=== PATIENT | male | born 1955 | race Caucasian/White ===

== ENCOUNTER 2019-01-11 06:58 | Day surgery (SDC) | payer BC ==
[~2019-01-11] VITALS: Ht 188 cm; Wt 100.7 kg
[~2019-01-11 06:58] MED LIST: AMLO10 PO; ASPI325 PO; CHOL10002; Daily Multivit1 EAC2 PO; FISH1000; GABA300 PO; GEMF600 PO; HYDCHL25 PO; Ibuprofen Ib200 MG PO; K-TAB ER20 MEQ PO; LOSA25; LOSARTAN POTAS100 MG PO; PROBIOTIC1 EAC1; Vitamin C1000 M1; ZOLP12.5 PO
[2019-01-11] MEDS ORDERED: Azor 5-20 MG T1 EACH (07:44)
== END 2019-01-11 08:49 | disposition home or self-care (01) ==
LOC: ORSCSDS 06:58
PROVIDERS: Surgery
PROC: 0DBL8ZX Excision of Transverse Colon, Via Natural or Artificial Opening Endoscopic, Diagnostic (ICD-10-PCS; principal; 2019-01-11 08:15)
PROC: 0DBK8ZX Excision of Ascending Colon, Via Natural or Artificial Opening Endoscopic, Diagnostic (ICD-10-PCS; principal; 2019-01-11 08:15)
DX: Z12.11 Encounter for screening for malignant neoplasm of colon (principal); Z85.038 Personal history of other malignant neoplasm of large intestine; D12.2 Benign neoplasm of ascending colon; D12.3 Benign neoplasm of transverse colon; K57.30 Diverticulosis of large intestine without perforation or abscess without bleeding; I10 Essential (primary) hypertension; Z79.899 Other long term (current) drug therapy; Z79.82 Long term (current) use of aspirin
CPT/HCPCS: 88305; J2704; J7120

== ENCOUNTER 2020-09-22 07:16 | Inpatient (IN) | payer OTHER, MEDICARE ==
[~2020-09-22] VITALS: Ht 188 cm; Wt 99.8 kg
[~2020-09-22 07:16] MED LIST changes: +Azor 5-20 MG T1 EACH
[2020-09-22 08:02] LABS: BASOPHILS PERCENT AUTO 0 % (0-2); EOSINOPHILS ABSOLUTE AUTO 0.18 K/mm3 (0.00-0.68); EOSINOPHILS PERCENT AUTO 1 % (0-6); Hematocrit 44.3 % (37.0-53.0); Hemoglobin 15.5 g/dL (13.5-17.5); IMMATURE GRAN ABSOLUTE AUTO 0.16 K/mm3 (0.00-0.10); IMMATURE GRAN PERCENT AUTO 1 % (0-1); LYMPHOCYTES ABSOLUTE AUTO 1.39 K/mm3 (0.84-5.20); LYMPHOCYTES PERCENT AUTO 5 % (21-46); MONOCYTES PERCENT AUTO 6 % (4-13); Mean Corpuscular Volume 89 fL (80-100); Mean Platelet Volume 9.4 fL (9.1-12.4); NEUTROPHILS ABSOLUTE AUTO 22.39 K/mm3 (1.96-9.15); NEUTROPHILS PERCENT AUTO 87 % (41-73); Platelet Count 523 K/mm3 (150-400); RDW Coefficient Variation 12.4 % (11.7-14.2); RDW Standard Deviation 40.4 fL (35.1-46.3); White Blood Cell Count 25.82 K/mm3 (4.00-11.30)
[2020-09-22 08:26] LABS: Alanine Aminotransfer (ALT/SGP 20 U/L (12-78); Albumin/Globulin Ratio 0.8 (0.8-1.8); Alk Phos 132 U/L (50-136); Anion Gap 11 mmol/L (6-16); Aspartate Aminotrans (AST/SGOT 10 U/L (12-37); Bilirubin, Total 1.1 mg/dL (0.1-1.0); Blood Urea Nitrogen 28 mg/dL (8-24); Bun/Creatinine Ratio 26.2 (12.0-20.0); CO2, Blood 24 mmol/L (21-32); Calcium, Blood 10.2 mg/dL (8.5-10.1); Chloride, Blood 100 mmol/L (98-108); Creatinine, Blood 1.07 mg/dL (0.60-1.20); Globulin, Blood 4.9 g/dL (2.2-4.0); Glomerular Filtration Rate >60 (60-); Glucose, Blood 127 mg/dL (70-99); Potassium, Blood 2.9 mmol/L (3.5-5.5); Sodium, Blood 135 mmol/L (136-145); Total Protein, Blood 8.9 g/dL (6.4-8.2); Troponin I 0.015 ng/mL (0.000-0.040)
[2020-09-22 08:48] LABS: Influenza A, PCR Negative (NEGATIVE); Influenza B, PCR Negative (NEGATIVE); Resp Syncytial Virus, PCR Negative (NEGATIVE); SARS-Cov-2 (COVID-19) PCR, MMC Negative (NEGATIVE)
[2020-09-22] MEDS ORDERED: HYDCHL50 PO (12:25)
[2020-09-22] MEDS ORDERED: AMLO10 PO (12:25)
[2020-09-22] MEDS ORDERED: LOSARTAN POTAS100 M1 PO (12:25)
[2020-09-22] MEDS ORDERED: C COMPLEX1000 M1 PO (12:26)
[2020-09-22] MEDS ORDERED: POTCHL20ER PO (12:26)
[2020-09-22] MEDS ORDERED: GEMF600 PO (12:26)
[2020-09-22] MEDS ORDERED: ZOLP12.5 PO (12:26)
[2020-09-22] MEDS ORDERED: THERA-D2000 UNIT PO (12:26)
[2020-09-22] MEDS ORDERED: DAILY-VITE1 EACH PO (12:27)
[2020-09-22] MEDS ORDERED: IBUP800 PO (12:27)
[2020-09-22] MEDS ORDERED: Vitamin B Comple1 EA PO (12:27)
[2020-09-22 14:29] LABS: Source, Urine Clean Catch
[2020-09-22 14:33] LABS: Bilirubin, Urine Neg (Neg); Blood, Urine Neg (Neg); Glucose Qualitative, Urine Neg (Neg); Ketones, Urine Neg (Neg); Leukocyte Esterase, Urine Neg (Neg); Nitrite, Urine Neg (Neg); Protein, Urine Neg (Neg); Urobilinogen, Urine 1+ (Normal)
[2020-09-22 14:44] LABS: Appearance, Urine Clear (Clear); Color, Urine Yellow (P-Yellow)
--- NOTE | 2020-09-22 17:28 | NUR ---
PT ADMITTED FOR SEPSIS. PT ALERT AND ORIENTED AND INDEPENDENT. PT HAD FEVER OF 100.9. TYLENOL GIVEN. PT ON NS PER SEPSIS PROTOCOL. PT RESTING AT THIS TIME. CALL LIGHT WITHIN REACH. WILL CONTINUE TO MONTIOR.
--- NOTE | 2020-09-23 05:29 | NUR ---
SUPERINTENDENT SUMMARY NO ACUTE CHANGES THIS SHIFT. PT AAOX4, STANDBY ASSIST TO THE BSC. LOW GRADE TEMP 99.4 TONIGHT. GIVEN 2 TABS NORCO X1 FOR RIB/FLANK PAIN. PT STATES HIS FEVER COMES AND GOES OVER THE COURSE OF 20 MINUTES OR SO AND HAS BEEN FOR THE LAST FEW WEEKS. PT HAS BEEN ABLE TO SLEEP OFF/ON THROUGH THE NIGHT. VSS, WILL CONTINUE TO MONITOR.
[2020-09-23 05:41] LABS: BASOPHILS ABSOLUTE AUTO 0.09 K/mm3 (0.00-0.23); BASOPHILS PERCENT AUTO 0 % (0-2); EOSINOPHILS ABSOLUTE AUTO 0.43 K/mm3 (0.00-0.68); EOSINOPHILS PERCENT AUTO 2 % (0-6); Hematocrit 36.9 % (37.0-53.0); Hemoglobin 12.5 g/dL (13.5-17.5); IMMATURE GRAN ABSOLUTE AUTO 0.16 K/mm3 (0.00-0.10); IMMATURE GRAN PERCENT AUTO 1 % (0-1); LYMPHOCYTES ABSOLUTE AUTO 1.48 K/mm3 (0.84-5.20); LYMPHOCYTES PERCENT AUTO 7 % (21-46); MONOCYTES ABSOLUTE AUTO 2.05 K/mm3 (0.16-1.47); MONOCYTES PERCENT AUTO 10 % (4-13); Mean Corpuscular HGB Conc 33.9 g/dL (31.5-36.5); Mean Corpuscular Volume 92 fL (80-100); Mean Platelet Volume 9.5 fL (9.1-12.4); NEUTROPHILS ABSOLUTE AUTO 17.48 K/mm3 (1.96-9.15); NEUTROPHILS PERCENT AUTO 81 % (41-73); Platelet Count 372 K/mm3 (150-400); RDW Coefficient Variation 12.6 % (11.7-14.2); RDW Standard Deviation 41.4 fL (35.1-46.3); Red Blood Cell Count 4.03 M/mm3 (4.30-5.90); White Blood Cell Count 21.69 K/mm3 (4.00-11.30)
[2020-09-23 06:05] LABS: Anion Gap 8 mmol/L (6-16); Blood Urea Nitrogen 20 mg/dL (8-24); Bun/Creatinine Ratio 25.3 (12.0-20.0); CO2, Blood 26 mmol/L (21-32); Calcium, Blood 8.7 mg/dL (8.5-10.1); Chloride, Blood 102 mmol/L (98-108); Creatinine, Blood 0.79 mg/dL (0.60-1.20); Glomerular Filtration Rate >60 (60-); Glucose, Blood 107 mg/dL (70-99); Potassium, Blood 2.7 mmol/L (3.5-5.5); Sodium, Blood 136 mmol/L (136-145)
[2020-09-23 15:32] LABS: Albumin, Blood 2.9 g/dL (3.4-5.0); Anion Gap 8 mmol/L (6-16); Blood Urea Nitrogen 19 mg/dL (8-24); Bun/Creatinine Ratio 22.2 (12.0-20.0); CO2, Blood 25 mmol/L (21-32); Calcium, Blood 9.2 mg/dL (8.5-10.1); Chloride, Blood 103 mmol/L (98-108); Creatinine, Blood 0.86 mg/dL (0.60-1.20); Glomerular Filtration Rate >60 (60-); Glucose, Blood 106 mg/dL (70-99); Phosphorus, Blood 1.8 mg/dL (2.5-4.9); Potassium, Blood 3.4 mmol/L (3.5-5.5); Sodium, Blood 136 mmol/L (136-145)
[2020-09-23 18:08] LABS: International Normalized Ratio 1.16; Prothrombin Time Results 12.3 Sec (9.7-11.5)
--- NOTE | 2020-09-23 18:22 | NUR ---
PT IS A/OX3, PLEASANT AND COOPERATIVE, THE PT IS UP IND IN HIS ROOM, THE PT WAS MEDICATED FOR LEFT FLANK PAIN X2 SO FAR TODAY, PTS WAS IN TO SEE HIM, KAYLI PINO ENVIRONMENTAL PROTECTION FORESTER WAS IN TO CONSULT WITH THE PT, PT IS MILDY ANXIOUS, APPEARS TO BE BREATHING EASILY AT REST ON O2 @ 2L/MIN, CALL LIGHT IN REACH WILL CONTINUE TO MONITOR AND ASSESS FOR CHANGES
--- NOTE | 2020-09-24 04:07 | NUR ---
SHIFT SUMMARY ASSUMED CARE OF PT AT 1900. PT IS A/OX4. HEART SOUNDS REGULAR, TELE SHOWS SINUS CLARENCE @ 54. LUNG SOUNDS HAVE CRACKLES IN THE L BASES, PT IS ON 2L NC. STATES HE HAS SOME SOB. PT IS INDEPENDENT TO BATHROOM. PT HAS NO KNEW COMPLAINTS BUT ASKED A LOT OF QUESTIONS ABOUT THE PROCEDURE IN THE AM. CALL LIGHT IN REACH, BED IN LOWEST POSITION. PT WAS ABLE TO SLEEP ALITTLE MORE THAN YESTERDAY DUE BEDTIME DOSE OF AMBIEN.
[2020-09-24 04:57] LABS: BASOPHILS ABSOLUTE AUTO 0.05 K/mm3 (0.00-0.23); BASOPHILS PERCENT AUTO 0 % (0-2); EOSINOPHILS ABSOLUTE AUTO 0.39 K/mm3 (0.00-0.68); EOSINOPHILS PERCENT AUTO 3 % (0-6); Hematocrit 33.8 % (37.0-53.0); Hemoglobin 11.3 g/dL (13.5-17.5); IMMATURE GRAN ABSOLUTE AUTO 0.07 K/mm3 (0.00-0.10); IMMATURE GRAN PERCENT AUTO 1 % (0-1); LYMPHOCYTES ABSOLUTE AUTO 1.55 K/mm3 (0.84-5.20); LYMPHOCYTES PERCENT AUTO 11 % (21-46); MONOCYTES ABSOLUTE AUTO 1.44 K/mm3 (0.16-1.47); MONOCYTES PERCENT AUTO 10 % (4-13); Mean Corpuscular HGB 30.6 pg (26.0-34.0); Mean Corpuscular HGB Conc 33.4 g/dL (31.5-36.5); Mean Corpuscular Volume 92 fL (80-100); Mean Platelet Volume 9.6 fL (9.1-12.4); NEUTROPHILS ABSOLUTE AUTO 11.31 K/mm3 (1.96-9.15); NEUTROPHILS PERCENT AUTO 76 % (41-73); Platelet Count 363 K/mm3 (150-400); RDW Coefficient Variation 12.5 % (11.7-14.2); RDW Standard Deviation 41.3 fL (35.1-46.3); Red Blood Cell Count 3.69 M/mm3 (4.30-5.90); White Blood Cell Count 14.81 K/mm3 (4.00-11.30)
[2020-09-24 05:17] LABS: Albumin, Blood 2.6 g/dL (3.4-5.0); Anion Gap 7 mmol/L (6-16); Blood Urea Nitrogen 17 mg/dL (8-24); Bun/Creatinine Ratio 21.6 (12.0-20.0); CO2, Blood 25 mmol/L (21-32); Calcium, Blood 8.6 mg/dL (8.5-10.1); Chloride, Blood 105 mmol/L (98-108); Creatinine, Blood 0.79 mg/dL (0.60-1.20); Glomerular Filtration Rate >60 (60-); Glucose, Blood 110 mg/dL (70-99); Phosphorus, Blood 2.4 mg/dL (2.5-4.9); Potassium, Blood 3.2 mmol/L (3.5-5.5); Sodium, Blood 137 mmol/L (136-145)
[2020-09-24 15:28] LABS: Glucose, Body Fluid 104 mg/dL
[2020-09-24 15:28] LABS: Automated BF RBC Count 0.007 M/mm3 (0-0); RBC Count, Body Fluid 7000 /mm3 (0-0)
[2020-09-24 15:29] LABS: Automated BF WBC Count 23.175 K/mm3 (0-999); Body Fluid WBC Count 23175 /mm3 (0-999)
[2020-09-24 15:30] LABS: Albumin, Body Fluid 2.1 g/dL; Lactate Dehydrogenase, Body Fl 357 U/L; Protein, Body Fluid 4.3 g/dL
[2020-09-24 15:35] LABS: pH, Body Fluid 7.9
[2020-09-24 16:30] LABS: Appearance, Body Fluid Hazy (Clear); Color, Body Fluid Red (None-Yellow); Total Cell Count, Body Fluid 100
--- NOTE | 2020-09-24 16:50 | NUR ---
THE PT IS A/OX3, PLEASANT AND COOPERATIVE, THE PT IS UP IND IN HIS ROOM, THE PT APPEARS TO BE BREATHING EASILY ON 1L/MIN O2 AT THIS TIME, PT WAS MEDICATED FOR PAIN WITH TYLENOL X2 TODAY, THE PT TODAY HAD A THORACENTISIS DONE THIS AFTERNOON, TOLERATED THE PROCEDURE WELL, DENIES AN PAIN AT THIS TIME, PTS WAS IN TO SEE HIM TODAY, CALL LIGHT IN REACH, WILL CONTINUE TO MONITOR AND ASSESS FOR CHANGES
--- NOTE | 2020-09-25 04:17 | NUR ---
SHIFT SUMMARY ASSUMED CARE OF PT AT 1900. PT IS A/OX4. HEART SOUNDS REGULAR, TELE SHOWS PT HAS BEEN IN AFIB AVERAGING 100. LUNG SOUNDS HAVE CRACKLES IN LOWER BASES, PT ON 1L NC, PT STATES HE HAS SOME SOB WITH ACTIVITY. PT INDEPENDENT IN ROOM. NO ACUTE EVENTS, PT WAS ABLE TO GET MORE SLEEP TONIGHT. CALL LIGHT IN REACH, BED IN LOWEST POSITION.
[2020-09-25 07:07] LABS: BASOPHILS ABSOLUTE AUTO 0.09 K/mm3 (0.00-0.23); BASOPHILS PERCENT AUTO 1 % (0-2); EOSINOPHILS ABSOLUTE AUTO 0.45 K/mm3 (0.00-0.68); EOSINOPHILS PERCENT AUTO 4 % (0-6); Hematocrit 36.7 % (37.0-53.0); Hemoglobin 12.3 g/dL (13.5-17.5); IMMATURE GRAN ABSOLUTE AUTO 0.05 K/mm3 (0.00-0.10); IMMATURE GRAN PERCENT AUTO 0 % (0-1); LYMPHOCYTES ABSOLUTE AUTO 1.48 K/mm3 (0.84-5.20); LYMPHOCYTES PERCENT AUTO 13 % (21-46); MONOCYTES ABSOLUTE AUTO 1.05 K/mm3 (0.16-1.47); MONOCYTES PERCENT AUTO 9 % (4-13); Mean Corpuscular HGB 30.8 pg (26.0-34.0); Mean Corpuscular HGB Conc 33.5 g/dL (31.5-36.5); Mean Corpuscular Volume 92 fL (80-100); Mean Platelet Volume 9.8 fL (9.1-12.4); NEUTROPHILS ABSOLUTE AUTO 8.22 K/mm3 (1.96-9.15); NEUTROPHILS PERCENT AUTO 72 % (41-73); Platelet Count 440 K/mm3 (150-400); RDW Coefficient Variation 12.3 % (11.7-14.2); RDW Standard Deviation 41.9 fL (35.1-46.3); Red Blood Cell Count 3.99 M/mm3 (4.30-5.90); White Blood Cell Count 11.34 K/mm3 (4.00-11.30)
[2020-09-25 07:24] LABS: Albumin, Blood 2.5 g/dL (3.4-5.0); Anion Gap 10 mmol/L (6-16); Blood Urea Nitrogen 16 mg/dL (8-24); Bun/Creatinine Ratio 18.8 (12.0-20.0); CO2, Blood 23 mmol/L (21-32); Calcium, Blood 8.7 mg/dL (8.5-10.1); Chloride, Blood 106 mmol/L (98-108); Creatinine, Blood 0.85 mg/dL (0.60-1.20); Glomerular Filtration Rate >60 (60-); Glucose, Blood 97 mg/dL (70-99); Phosphorus, Blood 2.9 mg/dL (2.5-4.9); Potassium, Blood 3.3 mmol/L (3.5-5.5); Sodium, Blood 139 mmol/L (136-145)
[2020-09-25] MEDS ORDERED: Acetaminophen325 M1 PO (13:21)
[2020-09-25] MEDS ORDERED: HYDR1TAB94 PO (13:25)
[2020-09-25] MEDS ORDERED: VISBIOME PROBI1 EACH PO (13:26)
[2020-09-25] MEDS ORDERED: AMOCLA500 PO (13:27)
[2020-09-25] MEDS ORDERED: XARELTO20 MG PO (13:27)
--- NOTE | 2020-09-25 14:22 | NUR ---
DISCHARGE:Left with , eager to leave, left discharge folder with hard script for pain medication, REVIEWED: appointments, discharge instructions and medications, stay, and plans for the future, removed iv and tele, due to computer issues pt was required to wait longer then originally expected, very cooperative but eager to leave
--- NOTE | 2020-09-25 16:23 | NUR ---
dr requested that the medication order be updated changed time of norvasc + losartan, stopped oretic, take two potassium today and change the amoxicillin to 2 pills bid for 4 days and then 875 bid for two days, called the pharmacy and changed the abx so the pt could tow picker the [phone] since he had already gotten the origninal abx and could not return them, then called the pt and asked them to change make the required changes and to tow picker the new dose of abx from the pharmacy and to take it the last two days, family stated they understood and would comply, also they would be comming in tomorrow to get the hard script for norco along with the rest of the discharge instructions
== END 2020-09-25 13:55 | disposition home or self-care (01) | DRG 871 ==
LOC: ER 07:16 → MEDS 10:13 → ERHOLD 10:13 → MEDS 14:43
PROVIDERS: Emergency Medicine; Internal Medicine Critical Care Medicine; Student in an Organized Health Care Education/Training Program; ADMIT Internal Medicine
PROC: 0W9B3ZZ Drainage of Left Pleural Cavity, Percutaneous Approach (ICD-10-PCS; principal; 2020-09-24)
DX: A41.9 Sepsis, unspecified organism (principal); J18.9 Pneumonia, unspecified organism; J90 Pleural effusion, not elsewhere classified; Z20.822 Contact with and (suspected) exposure to COVID-19; E87.6 Hypokalemia; E83.52 Hypercalcemia; D64.9 Anemia, unspecified; M54.5 Low back pain; G89.29 Other chronic pain; I10 Essential (primary) hypertension; K57.30 Diverticulosis of large intestine without perforation or abscess without bleeding; R91.1 Solitary pulmonary nodule; Z87.891 Personal history of nicotine dependence
CPT/HCPCS: 0241U; 32555; 36415; 71045; 71250; 74176; 80048; 80053; 80069; 81003; 82042; 82945; 83605; 83615; 83735; 83986; 84145; 84157; 84484; 85025; 85610; 85730; 87040; 87070; 87205; 87449; 88108; 88305; 88342; 89051; 93005; 93010; 94761; 96361; 96365; 96366; 96368; 96375; 99285-25; A9270; J0456; J0696; J2270; J2405; J2543; J3010; J3480; J7030; J7050; J7060

== ENCOUNTER 2020-09-27 11:13 | Emergency (ER) | payer OTHER, MEDICARE ==
[~2020-09-27] VITALS: Ht 188 cm; Wt 99.8 kg
[~2020-09-27 11:13] MED LIST changes: +AMOCLA500 PO; +Acetaminophen325 M1 PO; +C COMPLEX1000 M1 PO; +DAILY-VITE1 EACH PO; +HYDCHL50 PO; +HYDR1TAB94 PO; +IBUP800 PO; +LOSARTAN POTAS100 M1 PO; +POTCHL20ER PO; +THERA-D2000 UNIT PO; +VISBIOME PROBI1 EACH PO; +Vitamin B Comple1 EA PO; +XARELTO20 MG PO
[2020-09-27 12:07] LABS: BASOPHILS ABSOLUTE AUTO 0.15 K/mm3 (0.00-0.23); BASOPHILS PERCENT AUTO 1 % (0-2); EOSINOPHILS ABSOLUTE AUTO 0.46 K/mm3 (0.00-0.68); EOSINOPHILS PERCENT AUTO 3 % (0-6); Hematocrit 40.2 % (37.0-53.0); Hemoglobin 13.3 g/dL (13.5-17.5); IMMATURE GRAN PERCENT AUTO 1 % (0-1); LYMPHOCYTES ABSOLUTE AUTO 1.81 K/mm3 (0.84-5.20); LYMPHOCYTES PERCENT AUTO 13 % (21-46); MONOCYTES ABSOLUTE AUTO 1.66 K/mm3 (0.16-1.47); MONOCYTES PERCENT AUTO 12 % (4-13); Mean Corpuscular HGB 30.9 pg (26.0-34.0); Mean Corpuscular HGB Conc 33.1 g/dL (31.5-36.5); Mean Corpuscular Volume 93 fL (80-100); Mean Platelet Volume 9.1 fL (9.1-12.4); NEUTROPHILS PERCENT AUTO 71 % (41-73); Platelet Count 545 K/mm3 (150-400); RDW Coefficient Variation 12.5 % (11.7-14.2); RDW Standard Deviation 42.9 fL (35.1-46.3); Red Blood Cell Count 4.31 M/mm3 (4.30-5.90); White Blood Cell Count 14.28 K/mm3 (4.00-11.30)
[2020-09-27 12:28] LABS: Troponin I <0.015 ng/mL (0.000-0.040)
[2020-09-27 12:29] LABS: Alanine Aminotransfer (ALT/SGP 22 U/L (12-78); Albumin, Blood 2.9 g/dL (3.4-5.0); Albumin/Globulin Ratio 0.6 (0.8-1.8); Alk Phos 96 U/L (50-136); Anion Gap 8 mmol/L (6-16); Aspartate Aminotrans (AST/SGOT 13 U/L (12-37); Bilirubin, Total 0.6 mg/dL (0.1-1.0); Blood Urea Nitrogen 15 mg/dL (8-24); Bun/Creatinine Ratio 17.8 (12.0-20.0); CO2, Blood 23 mmol/L (21-32); Calcium, Blood 9.5 mg/dL (8.5-10.1); Chloride, Blood 109 mmol/L (98-108); Creatinine, Blood 0.84 mg/dL (0.60-1.20); Globulin, Blood 5.2 g/dL (2.2-4.0); Glomerular Filtration Rate >60 (60-); Glucose, Blood 106 mg/dL (70-99); Potassium, Blood 3.9 mmol/L (3.5-5.5); Sodium, Blood 140 mmol/L (136-145); Total Protein, Blood 8.1 g/dL (6.4-8.2)
[2020-09-27] MEDS ORDERED: WARF5 PO (16:00)
[2020-09-27] MEDS ORDERED: Toprol Xl25 MG PO (16:00)
== END 2020-09-27 16:15 | disposition home or self-care (01) ==
LOC: ER 11:13
PROVIDERS: Emergency Medicine
DX: J18.9 Pneumonia, unspecified organism (principal); I48.91 Unspecified atrial fibrillation; I10 Essential (primary) hypertension; Z79.899 Other long term (current) drug therapy; Z87.891 Personal history of nicotine dependence
CPT/HCPCS: 36415; 71046; 80053; 84484; 85025; 93005; 93010; 96374; 99285-25; A9270

== ENCOUNTER 2023-06-27 08:36 | Emergency (ER) | payer MEDICARE ==
[~2023-06-27] VITALS: Ht 190.5 cm; Wt 99.8 kg
[~2023-06-27 08:36] MED LIST changes: +Toprol Xl25 MG PO; +WARF5 PO
[2023-06-27 09:14] VITALS: BP 162/75
[2023-06-27] MEDS ORDERED: HYDR1TAB94 PO (10:46)
== END 2023-06-27 11:33 | disposition home or self-care (01) ==
LOC: ER 08:36
DX: S22.32XA Fracture of one rib, left side, initial encounter for closed fracture (principal); S09.90XA Unspecified injury of head, initial encounter; W17.89XA Other fall from one level to another, initial encounter; I10 Essential (primary) hypertension; Z87.891 Personal history of nicotine dependence; Z79.899 Other long term (current) drug therapy; Z79.01 Long term (current) use of anticoagulants
CPT/HCPCS: 71101; 99283-25; A9270

== ENCOUNTER 2023-07-11 10:07 | Inpatient (IN) | payer OTHER, MEDICARE ==
[~2023-07-11] VITALS: Ht 190.5 cm; Wt 105.8 kg
[~2023-07-11 10:07] MED LIST changes: +AMLO5 PO; +DERMACINRX FOL1 EAC2 PO; -THERA-D2000 UNIT PO
[2023-07-11 11:06] LABS: BASOPHILS ABSOLUTE AUTO 0.05 K/mm3 (0.00-0.23); BASOPHILS PERCENT AUTO 0 % (0-2); EOSINOPHILS ABSOLUTE AUTO 0.01 K/mm3 (0.00-0.68); EOSINOPHILS PERCENT AUTO 0 % (0-6); Hematocrit 40.2 % (37.0-53.0); IMMATURE GRAN ABSOLUTE AUTO 0.13 K/mm3 (0.00-0.10); IMMATURE GRAN PERCENT AUTO 1 % (0-1); LYMPHOCYTES ABSOLUTE AUTO 0.54 K/mm3 (0.84-5.20); LYMPHOCYTES PERCENT AUTO 4 % (21-46); MONOCYTES ABSOLUTE AUTO 0.54 K/mm3 (0.16-1.47); MONOCYTES PERCENT AUTO 4 % (4-13); Mean Corpuscular HGB 30.8 pg (26.0-34.0); Mean Corpuscular HGB Conc 34.8 g/dL (31.5-36.5); Mean Corpuscular Volume 89 fL (80-100); Mean Platelet Volume 10.8 fL (9.1-12.4); NEUTROPHILS ABSOLUTE AUTO 11.16 K/mm3 (1.96-9.15); NEUTROPHILS PERCENT AUTO 90 % (41-73); Platelet Count 70 K/mm3 (150-400); RDW Coefficient Variation 13.7 % (11.7-14.2); RDW Standard Deviation 44.5 fL (35.1-46.3); Red Blood Cell Count 4.54 M/mm3 (4.30-5.90); White Blood Cell Count 12.43 K/mm3 (4.00-11.30)
[2023-07-11 11:38] LABS: Influenza A, PCR NEGATIVE (NEGATIVE); Influenza B, PCR NEGATIVE (NEGATIVE); Resp Syncytial Virus, PCR NEGATIVE (NEGATIVE); SARS-Cov-2 (COVID-19) PCR, MMC NEGATIVE (NEGATIVE)
[2023-07-11 12:03] LABS: Albumin, Blood 2.7 g/dL (3.4-5.0); Albumin/Globulin Ratio 0.6 (0.8-1.8); Bilirubin, Total 0.8 mg/dL (0.1-1.0); Bun/Creatinine Ratio 23.2 (12.0-20.0); Calcium, Blood 8.7 mg/dL (8.5-10.1); Creatinine, Blood 1.77 mg/dL (0.60-1.20); Globulin, Blood 4.5 g/dL (2.2-4.0); Potassium, Blood 2.6 mmol/L (3.5-5.5); Total Protein, Blood 7.2 g/dL (6.4-8.2)
[2023-07-11 17:19] VITALS: BP 159/104
[2023-07-11] MEDS ORDERED: IBUP800 PO (17:33)
[2023-07-11] MEDS ORDERED: PREG100 PO (17:33)
[2023-07-11] MEDS ORDERED: LOSARTAN POTAS100 M1 PO (17:33)
[2023-07-11] MEDS ORDERED: BENADRYL25 MG PO (17:34)
[2023-07-11] MEDS ORDERED: MELATONIN10 M1 PO (17:35)
[2023-07-11] MEDS ORDERED: FISH OIL 1,0001 EA10 PO (17:37)
--- NOTE | 2023-07-11 19:23 | NUR ---
ADMISSION SUMMARY: PT ARRIVES TO UNIT AT APPROX 1710. PT ARRIVES A&Ox4, ANSWERS QUESTIONS APPROPRIATELY, TRANSFERS SELF TO BED W/SBA, MILD WEAKNESS. SLIGHT SOB AT REST, PT STATES "IT JUST FEELS LIKE I AM NOT FEELING WELL", LS CLEAR, O2 SATS >95% ON RA. SR ON MONITOR W/RATE 90s, PT DENIES CHEST PAIN. PT REPORTS LAST BM WAS LOOSE AND WAS THIS AM PRIOR TO COMING TO HOSPITAL. POTASSIUM INFUSION HAS COMPLETED AT APPROX 1830, LAB DRAW SCHEDULED FOR APPROX 1930. REPORT GIVEN TO CAESAR GAMBINO TO ASSUME CARE OF PT.
[2023-07-11 20:25] VITALS: BP 173/72
[2023-07-11 21:56] VITALS: BP 125/57
--- NOTE | 2023-07-11 22:31 | NUR ---
UPDATE ~2100 THIS PM PT NOTED TO BE HAVING INCREASING FREQUENT BROWN/YELLOW, LOOSE STOOLS THAT "COME OUT OF NOWHERE" PER PT. PT NOTED TO HAVE INCREASED WORK BREATHING WITH RR RANGING 20'S, EVEN WHEN AT REST, AND WOULD BECOME SOB WITH MINIMAL EXERTION. URINE NOTED TO BE VERY DARK IN COLOR WITH HR NOW RANGING 110-120'S WHEN AT REST AND JUMPING INTO THE 140'S WITH EXERTION. POTASSIUM REDRAW RESULTED WITH K 3.1. DR. CABELLO NOTIFIED OF THE ABOVE FINDINGS WITH NEW ORDERS FOR PRN IMODIUM, STOOL SAMPLE COLLECTION, 40meq PO POTASSIUM REPLACEMENT, AND ORDERS FOR REDRAW IN THE EARLY AM. MEDICATIONS ADMINISTERED ORDERED VIA EMAR. STOOL SAMPLE COLLECTED AND SENT TO LAB. PT ENCOURGAED TO USE BEDPAN FOR WORK OF BREATHING WELL TO INCREASE PO FLUID INTAKE. PT ASLO PLACED ON 2L VIA NC WITH SPO2 NOW MAINTAINING 93-96%. PT ALSO NOTED TO BE RUNNING MILD FEVER WITH PRN TYLENOL ADMINISTED PER EMAR. NS INFUSING ORDERED. NO NEW ORDERS AT THIS TIME.
[2023-07-11 23:25] VITALS: BP 120/72
[2023-07-12 00:31] LABS: Campylobacter Sp Not Detected (NOT DETECT)
[2023-07-12 00:32] LABS: Adenovirus F 40/41 Not Detected (NOT DETECT); Astrovirus Not Detected (NOT DETECT); Cryptosporidium Not Detected (NOT DETECT); Cyclospora Cayetanensis Not Detected (NOT DETECT); E. Coli O157 Not Detected (NOT DETECT); Entamoeba Histolytica Not Detected (NOT DETECT); Enteroaggregative E. coli-EAEC Not Detected (NOT DETECT); Enteropathogenic E. coli-EPEC Detected (NOT DETECT); Enterotoxigenic E. coli-ETEC Not Detected (NOT DETECT); Giardia Lamblia Detected (NOT DETECT); Norovirus GI/GII Not Detected (NOT DETECT); Plesiomonas Shigelloides Not Detected (NOT DETECT); Rotavirus A Not Detected (NOT DETECT); Salmonella Sp Not Detected (NOT DETECT); Sapovirus Not Detected (NOT DETECT); Shiga Toxin-prod E. coli-STEC Not Detected (NOT DETECT); Shigella/Enteroin E. coli-EIEC Not Detected (NOT DETECT); Vibrio Cholerae Not Detected (NOT DETECT); Vibrio Sp Not Detected (NOT DETECT); Yersinia Enterocolitica Not Detected (NOT DETECT)
--- NOTE | 2023-07-12 01:58 | NUR ---
0100 POTASSIUM DRAW SHOWED RESULTS OF POTASSIUM OF 2.8. CALLED TO NOTIFY HOSPITALIST DR. BRANNON WHO ORDERED 40 MEQ POTASSIUM IV FOR SUPPLEMENTATION. ENTERED ORDER AND WILL ADMINISTER ONCE AVAIABLE. ALSO INFORMED DR. BRANNON THAT PT HAD A BRIEF RUN OF SVT WITH HR OF ~180 AT 0150. PT ASYMPTOMATIC, SLEEPING AT THE TIME. NO ORDERS REGARDING THIS AT THIS TIME.
[2023-07-12 04:03] VITALS: BP 97/63
--- NOTE | 2023-07-12 04:11 | NUR ---
SHIFT SUMMARY. PT REMAINS AOX4, PLEASANT, COOPERATIVE WITH CARE. PT HAD EPISODE OF DIARRHEA INCONTINENCE EARLY IN SHIFT. SEE RELATED NOTE FOR EXPANDED DETAILS. SINCE THEN, PT HAS BEEN SLEEPING COMFORTABLY IN BED THROUGHOUT SHIFT. IV POTASSIUM CONTINUES TO INFUSE PER DR. BRANNON ORDERED. PT CONTINUES TO BE TACHYPNEIC BUT IS SATURATING >92% ON 1 L O2 VIA NC. DYSPNEA WITH EXERTION. TELE ON THROUGHOUT SHIFT. PT HAS BEEN TACHYCARDIC WITH BRIEF RUN OF SVT EARLY THIS MORNING, DR. BRANNON AWARE. PT HAD POSITIVE STOOL SAMPLE FOR GIARDIA, CONTACT PRECAUTIONS PUT INTO PLACE. PT REMAINS SBA WITH BED ALARM ACTIVE. CALLS APPROPRIATELY FOR ASSISTANCE THUS FAR. BED LOCKED IN LOWEST POSITION. CALL LIGHT LEFT WITHIN REACH.
[2023-07-12 04:37] LABS: Hematocrit 35.7 % (37.0-53.0); Hemoglobin 12.2 g/dL (13.5-17.5); Mean Corpuscular HGB 30.7 pg (26.0-34.0); Mean Corpuscular HGB Conc 34.2 g/dL (31.5-36.5); Mean Corpuscular Volume 90 fL (80-100); Mean Platelet Volume 10.1 fL (9.1-12.4); Platelet Count 56 K/mm3 (150-400); RDW Standard Deviation 46.8 fL (35.1-46.3); Red Blood Cell Count 3.97 M/mm3 (4.30-5.90); White Blood Cell Count 16.26 K/mm3 (4.00-11.30)
[2023-07-12 04:50] VITALS: BP 117/74
[2023-07-12 05:05] LABS: Albumin, Blood 2.1 g/dL (3.4-5.0); Albumin/Globulin Ratio 0.6 (0.8-1.8); Bilirubin, Total 0.8 mg/dL (0.1-1.0); Bun/Creatinine Ratio 18.2 (12.0-20.0); Calcium, Blood 7.6 mg/dL (8.5-10.1); Creatinine, Blood 2.92 mg/dL (0.60-1.20); Globulin, Blood 3.7 g/dL (2.2-4.0); Potassium, Blood 3.3 mmol/L (3.5-5.5); Total Protein, Blood 5.8 g/dL (6.4-8.2)
[2023-07-12 05:41] LABS: BAND PERCENT MAN 8 % (0-8); BASOPHILS PERCENT MAN 0 % (0-2); EOSINOPHILS PERCENT MAN 0 % (0-6); LYMPHOCYTES ABSOLUTE MAN 0.97 K/mm3 (0.84-5.20); LYMPHOCYTES PERCENT MAN 6 % (21-46); MONOCYTES ABSOLUTE MAN 0.65 K/mm3 (0.16-1.47); MONOCYTES PERCENT MAN 4 % (4-13); NEUTROPHILS ABSOLUTE MAN 14.63 K/mm3 (1.96-9.15); SEG NEUTROPHILS PERCENT MAN 82 % (41-73); TOTAL CELLS COUNTED 100
[2023-07-12 09:19] VITALS: BP 124/64
[2023-07-12 11:37] VITALS: BP 127/65
[2023-07-12 12:38] LABS: Thyroid Stimulating Hormone 0.518 uIU/mL (0.360-4.800); Uric Acid, Blood 6.8 mg/dL (3.5-7.2)
--- NOTE | 2023-07-12 14:24 | NUR ---
is here at the bedside. UPdate given, and questions answered. Pt given NOrco for headache from head injury.
[2023-07-12 14:56] LABS: Eosinophils-Raw #,Urine 0
--- NOTE | 2023-07-12 15:31 | NUR ---
Pt is sleeping.
[2023-07-12 16:08] VITALS: BP 136/68
--- NOTE | 2023-07-12 16:13 | NUR ---
Awakened for lab draw. Quickly back to sleep afterwards in dimly lit room.
[2023-07-12 16:40] LABS: Bun/Creatinine Ratio 19.8 (12.0-20.0); Calcium, Blood 7.8 mg/dL (8.5-10.1); Creatinine, Blood 3.33 mg/dL (0.60-1.20); Potassium, Blood 3.6 mmol/L (3.5-5.5)
[2023-07-12 20:11] VITALS: BP 132/85
[2023-07-13] VITALS (8 sets, daily range): BP systolic 101–130; BP diastolic 63–95
--- NOTE | 2023-07-13 00:05 | NUR ---
PHYSICIAN CONTACT THIS RN NOTIFIED BY TELEMETRY THAT PT CONVERTED FROM NSR TO AFIB WITH HR 130-150'S. CALL PLACED TO DR. CABELLO. ORDERS RECEIVED FOR CARDIZEM PUSH AND PO METOPROLOL, SEE EMAR. CURRENT HR 90-100'S, AFIB ON TELE.
[2023-07-13 04:21] LABS: BASOPHILS ABSOLUTE AUTO 0.03 K/mm3 (0.00-0.23); BASOPHILS PERCENT AUTO 0 % (0-2); EOSINOPHILS ABSOLUTE AUTO 0.07 K/mm3 (0.00-0.68); EOSINOPHILS PERCENT AUTO 1 % (0-6); Hematocrit 35.9 % (37.0-53.0); Hemoglobin 12.1 g/dL (13.5-17.5); IMMATURE GRAN ABSOLUTE AUTO 0.16 K/mm3 (0.00-0.10); IMMATURE GRAN PERCENT AUTO 1 % (0-1); LYMPHOCYTES ABSOLUTE AUTO 1.67 K/mm3 (0.84-5.20); LYMPHOCYTES PERCENT AUTO 12 % (21-46); MONOCYTES ABSOLUTE AUTO 0.93 K/mm3 (0.16-1.47); MONOCYTES PERCENT AUTO 7 % (4-13); Mean Corpuscular HGB 30.6 pg (26.0-34.0); Mean Corpuscular HGB Conc 33.7 g/dL (31.5-36.5); Mean Corpuscular Volume 91 fL (80-100); Mean Platelet Volume 10.4 fL (9.1-12.4); NEUTROPHILS ABSOLUTE AUTO 10.79 K/mm3 (1.96-9.15); NEUTROPHILS PERCENT AUTO 79 % (41-73); Platelet Count 90 K/mm3 (150-400); RDW Coefficient Variation 14.6 % (11.7-14.2); Red Blood Cell Count 3.95 M/mm3 (4.30-5.90); White Blood Cell Count 13.65 K/mm3 (4.00-11.30)
[2023-07-13 04:52] LABS: Bun/Creatinine Ratio 22.9 (12.0-20.0); Calcium, Blood 8.1 mg/dL (8.5-10.1); Creatinine, Blood 3.06 mg/dL (0.60-1.20); Potassium, Blood 3.7 mmol/L (3.5-5.5)
--- NOTE | 2023-07-13 05:20 | NUR ---
END OF SHIFT NOTE PT A&OX4 THIS SHIFT, ABLE TO CALL APPROPRIATELY AND COMMUNICATE NEEDS WITH STAFF. PT CONVERTED FROM SR TO AFIB AT 2052 ON 07/12/23. HR 130-150'S, CARDIZEM PUSH AND PO METOPROLOL ADMINISTERED PER EMAR. FOLLOWING THIS, HR HAS REMAINED 90-100'S IN AFIB. BP STABLE, MAP >65. DENIES CHEST PAIN/PRESSURE. SPO2 >93% ON RA. AFEBRILE. NO EPISODES ON DIARRHEA OVERNIGHT. PT ABLE TO STAND AT BEDSIDE AND USE URINAL INDEPENDENTLY. NS INFUSING AT 150ML/HR PER EMAR. NO OTHER EVENTS. CALL LIGHT WITHIN REACH, BED IN LOWEST POSITION. WILL REPORT TO ONCOMING RN.
--- NOTE | 2023-07-13 17:25 | NUR ---
SHIFT SUMMARY PT IS ALERT AND ORIENTED X 4, BP STABLE, HR IS AFIB 90-110'S PER TELE MONITORING, SPO2 MAINTAINED >95% VIA RA. PT HAS DENIED FEELINGS OF CHEST PAIN/PRESSURE, HE REPORTS FEELING SOB W/ EXERTION. HE DENIED FEELINGS OF NAUSEA/VOMITTING BUT REPORTED "JUST FEELING CRUMMY." PAIN WAS REPORTED 6/10 IN L THORACIC REGION, PLEASE SEE EMAR FOR PAIN MANAGEMENT. PT REPORTED CRACKING RIBS RESULT OF FALL INTO [place] OF [place]. HIS HAS BEEN AT BEDSIDE DURING SHIFT. HE HAS USED BEDSIDE URINAL TO VOID BUT HAS ALSO BEEN UP TO BR TO SHOWER. INDEPENDENTLY. R IV IS SALINE LOCKED, L IV IS INFUSING PER EMAR ORDERS. CALL LIGHT IS W/IN REACH, WILL CONTINUE TO MONITOR UNTIL REPORT GIVEN.
[2023-07-14 03:15] VITALS: BP 134/90
[2023-07-14 03:45] LABS: Hematocrit 36.8 % (37.0-53.0); Hemoglobin 12.5 g/dL (13.5-17.5); Mean Corpuscular HGB 30.5 pg (26.0-34.0); Mean Corpuscular Volume 90 fL (80-100); Mean Platelet Volume 10.4 fL (9.1-12.4); Platelet Count 139 K/mm3 (150-400); RDW Coefficient Variation 14.5 % (11.7-14.2); White Blood Cell Count 8.47 K/mm3 (4.00-11.30)
[2023-07-14 04:09] LABS: Bun/Creatinine Ratio 32.1 (12.0-20.0); Calcium, Blood 8.3 mg/dL (8.5-10.1); Creatinine, Blood 2.09 mg/dL (0.60-1.20); Potassium, Blood 3.5 mmol/L (3.5-5.5)
[2023-07-14 04:35] LABS: BASOPHILS PERCENT MAN 0 % (0-2); EOSINOPHILS ABSOLUTE MAN 0.25 K/mm3 (0.00-0.68); EOSINOPHILS PERCENT MAN 3 % (0-6); LYMPHOCYTES % ATYPICAL MANUAL 2 % (0-0); LYMPHOCYTES ABSOLUTE MAN 1.35 K/mm3 (0.84-5.20); LYMPHOCYTES PERCENT MAN 14 % (21-46); MONOCYTES ABSOLUTE MAN 0.84 K/mm3 (0.16-1.47); MONOCYTES PERCENT MAN 10 % (4-13); NEUTROPHILS ABSOLUTE MAN 6.01 K/mm3 (1.96-9.15); SEG NEUTROPHILS PERCENT MAN 71 % (41-73); TOTAL CELLS COUNTED 100
--- NOTE | 2023-07-14 05:36 | NUR ---
SHIFT SUMMARY NO ACUTE CHANGES THIS SHIFT. PT A&OX4, INDEPENDENT IN ROOM. SP02>90% ON RA. AUDIBLY WHEEZY AT START OF SHIFT, CLEARED W/ BREATHING TX. RT IN ROOM. TELEMETRY SHOWS AFIB HR 100'S, CLIMBED TO 140'S W/ AMBULATION. HR SETTLED TO 90'S W/ EVENING MEDS AND SLEEPING. USED URINAL TO VOID. DENIES NAUSEA/VOMITING. NS INFUSED PER EMAR. PT RESTED MOST OF NIGHT. CALL LIGHT IN REACH.
[2023-07-14 08:28] VITALS: BP 134/81
--- NOTE | 2023-07-14 09:59 | NUR ---
AM NOTE: PATIENT ALERT AND ORIENTED, SITTING UP ON EDGE OF BED THIS MORNING. DENIES NUMBNESS/TINGLING. COMPLAINS OF HEADACHE AND OVERALL NOT FEELING WELL. UP WITH SBA TO HELP MANAGE CORDS. ABLE TO TURN SELF IN BED. TELE SHOWING AFIB WITH HR 90-110'S. PO METOPROLOL GIVEN THIS AM, BP STABLE. DENIES CHEST PAIN/PRESSURE/PALPITATIONS. PPP. MINIMAL EDEMA NOTED BLE. NS INFUSING PER EMAR. STRICT I/O. ON ROOM AIR SATING ABOVE 95%. LUNGS SOUNDING CLEAR AND COARSE IN LOWER LOBES. DENIES SOB. OCCASIONAL COUGH THAT PATIENT STATES IS BECOMING MORE PRODUCTIVE. BREATHING TREATMENTS NEEDED. DR. GRIFFITH BY THIS AM, ORDERS FOR THIS RN TO PLACE - CT OF CHEST WITHOUT CONTRAST, ORDERS IN PLACE. PLAN TO CONTINUE NS AT THIS TIME. USING URINAL TO VOID. BOWEL TONES PRESENT. DENIES ABDOMINAL PAIN/NAUSEA AT THIS TIME, STATES HE HAD A SHORT EPISODE OF NAUSEA LAST NIGHT. POOR APPEATITE, NOT EATING THIS AM. DRINKING FLUIDS. AT BEDSIDE, UPDATED BY THIS RN. CALL LIGHT IN REACH. PATIENT DENIES NEEDS AT THIS TIME.
[2023-07-14 11:45] VITALS: BP 113/84
--- NOTE | 2023-07-14 15:16 | NUR ---
PATIENT TO CT AT THIS TIME.
[2023-07-14 15:48] VITALS: BP 150/96
--- NOTE | 2023-07-14 15:49 | NUR ---
PATIENT RETURNS FROM CT. VITAL SIGNS STABLE. FLUIDS INFUSING PER EMAR. PATIENT LOOKING OVERALL EXHAUSTED. DENIES PAIN, DENIES NEED FOR ANYTHING. REQUESTING TO LAY DOWN AND SLEEP. PATIENT LAYING IN BED AT THIS TIME WITH LIGHTS OFF. CALL LIGHT IN REACH.
--- NOTE | 2023-07-14 17:40 | NUR ---
SHIFT SUMMARY: NO ACUTE CHANGES. PATIENT ASLEEP/RESTING IN BED MOST OF SHIFT. DENIES PAIN AT THIS TIME. DENIES ANY CHANGES FROM THIS AM, BESIDES RESOLVED HEADACHE. STATES HE STILL FEELS "CRUMMY". VITAL SIGNS STABLE. HR 80-100'S. REMAINS ON ROOM AIR SATING ABOVE 95%. IV ABX AND NS INFUSING. STRICT I/O. PATIENT USING URINAL TO VOID. COMPLAINED OF HEADACHE THIS AM, MEDICATED WITH NORCO AND HEADACHE RESOLVED. CT OF CHEST WITHOUT CONTRAST COMPLETED THIS SHIFT. AT BEDSIDE THIS AM AND THIS RN PROVIDED UPDATE. CALL LIGHT IN REACH. SITTING AT SIDE OF BED AT THIS TIME EATING. POOR APPEATITE AND EATING VERY SMALL AMOUNTS THROUGHOUT SHIFT.
[2023-07-14 19:45] VITALS: BP 148/91
[2023-07-15 00:05] VITALS: BP 120/75
[2023-07-15 04:15] LABS: BASOPHILS ABSOLUTE AUTO 0.04 K/mm3 (0.00-0.23); BASOPHILS PERCENT AUTO 0 % (0-2); EOSINOPHILS ABSOLUTE AUTO 0.14 K/mm3 (0.00-0.68); EOSINOPHILS PERCENT AUTO 2 % (0-6); Hematocrit 38.4 % (37.0-53.0); Mean Corpuscular HGB 30.4 pg (26.0-34.0); Mean Corpuscular HGB Conc 33.9 g/dL (31.5-36.5); Mean Corpuscular Volume 90 fL (80-100); Mean Platelet Volume 10.3 fL (9.1-12.4); Platelet Count 171 K/mm3 (150-400); RDW Coefficient Variation 14.2 % (11.7-14.2); RDW Standard Deviation 46.1 fL (35.1-46.3); Red Blood Cell Count 4.28 M/mm3 (4.30-5.90); White Blood Cell Count 9.02 K/mm3 (4.00-11.30)
--- NOTE | 2023-07-15 04:15 | NUR ---
SUMMARY NO NEW ISSUES NOTED. PT HAS AUDIBLE WHEEZES. PT DENIES SOB. PT HAS BEEN RESTING FOR MOST OF SHIFT. PT HAS BEEN VOIDING VIA URINAL. PT CURRENTLY SLEEPING IN NO DISTRESS. CALL LIGHT IN REACH.
[2023-07-15 04:20] LABS: IMMATURE GRAN ABSOLUTE AUTO 0.16 K/mm3 (0.00-0.10); IMMATURE GRAN PERCENT AUTO 2 % (0-1); LYMPHOCYTES ABSOLUTE AUTO 1.92 K/mm3 (0.84-5.20); LYMPHOCYTES PERCENT AUTO 21 % (21-46); MONOCYTES ABSOLUTE AUTO 0.98 K/mm3 (0.16-1.47); MONOCYTES PERCENT AUTO 11 % (4-13); NEUTROPHILS ABSOLUTE AUTO 5.78 K/mm3 (1.96-9.15); NEUTROPHILS PERCENT AUTO 64 % (41-73)
[2023-07-15 04:54] LABS: Albumin, Blood 2.3 g/dL (3.4-5.0); Albumin/Globulin Ratio 0.6 (0.8-1.8); Bilirubin, Total 0.6 mg/dL (0.1-1.0); Bun/Creatinine Ratio 36.8 (12.0-20.0); Calcium, Blood 8.2 mg/dL (8.5-10.1); Creatinine, Blood 1.33 mg/dL (0.60-1.20); Globulin, Blood 3.8 g/dL (2.2-4.0); Potassium, Blood 3.3 mmol/L (3.5-5.5); Total Protein, Blood 6.1 g/dL (6.4-8.2)
[2023-07-15 07:18] VITALS: BP 140/92
--- NOTE | 2023-07-15 09:44 | NUR ---
AM NOTE: PATIENT ALERT AND ORIENTED. AT TIMES HARD OF HEARING. VERY UPSET ABOUT BEING IN HOSPITAL AND PATIENT STATES HE JUST WANTS TO GO HOME. COOPERATIVE WITH CARE. DENIES NUMBNESS/TINGLING. COMPLAINS OF HEADACHE. MEDICATED PER EMAR. DR. GRIFFITH AT BEDSIDE. CT OF HEAD WITHOUT CONTRAST ORDERED, PATIENT JUST LEFT FOR CT AT THIS TIME. ABLE TO TURN SELF IN BED, STANDING IND TO USE URINAL. ON ROOM AIR SATING MID 90'S. OCCASIONAL MOIST COUGH. EXPIRATORY WHEEZES HEARD THROUGHOUT UPPER LOBES. EVEN AND UNLABORED RESPIRATIONS. TELE SHOWING AFIB WITH HR 80-110'S. BP STABLE. PPP. DENIES CHEST PAIN/PRESSURE/PALPITATIONS. BOWEL TONES PRESENT THROUGHOUT ALL QUADRANTS. POOR APPEATITE. DRINKING FLUIDS. VOIDING WNL. NORMAL SALINE DISCONTINUED. IV'S SALINE LOCKED. AT BEDSIDE FOR PROVIDER ROUNDING. PATIENT AT CT AT THIS TIME.
--- NOTE | 2023-07-15 09:56 | NUR ---
PATIENT BACK FROM CT AT THIS TIME.
[2023-07-15 11:48] VITALS: BP 118/82
--- NOTE | 2023-07-15 12:22 | NUR ---
RESULTS FROM CT OF HEAD IN CHART. THIS RN PLACED CALL TO DR. GRIFFITH. PATIENT STILL WANTING TO GO HOME. POSSIBLE DISCHARGE THIS AFTERNOON. PATIENT AND UPDATED.
[2023-07-15] MEDS ORDERED: ELIQUIS5 M2 PO (12:59)
[2023-07-15] MEDS ORDERED: SODBIC650 PO (13:00)
[2023-07-15] MEDS ORDERED: METO25 PO (13:00)
[2023-07-15] MEDS ORDERED: Flagyl500 MG PO (13:00)
[2023-07-15] MEDS ORDERED: VISBIOME 112.51 EACH PO (13:01)
--- NOTE | 2023-07-15 13:41 | NUR ---
MED REC FAXED TO [facility]. COPY OF WRITTEN LAB AND ELIQUIS SCRIPT PLACED IN PAPER CHART. ORIGINALS SENT HOME WITH PATIENT ALONG WITH PATIENT.
--- NOTE | 2023-07-15 14:53 | NUR ---
DISCHARGE NOTE: NO ACUTE CHANGES, SEE PREVIOUS NOTES. VITAL SIGNS REMAIN STABLE. IN TO ANODE MACHINE OPERATOR FOR DISCHARGE. DISCHARGE INSTRUCTIONS REVIEWED WITH PATIENT AND . THIS RN EDUCATED ON NEW MEDICATIONS TO ANODE MACHINE OPERATOR FROM [facility], SIGNS AND SYMPTOMS OF WHEN TO RETURN, CMP LAB DRAWN AND FOLLOW UP APPOINTMENT. PATIENT SENT HOME WITH HARD SCRIPT FOR CMP LAB DRAWN AND ELIQUIS. PATIENT LEFT UNIT WITH ALL PERSONAL BELONGINGS VIA WHEELCHAIR. IV'S REMOVED WNL.
== END 2023-07-15 14:08 | disposition home or self-care (01) | DRG 872 ==
LOC: ER 10:07 → PCU 15:26
PROVIDERS: Internal Medicine; Student in an Organized Health Care Education/Training Program; ADMIT Internal Medicine
DX: A41.9 Sepsis, unspecified organism (principal); S22.42XA Multiple fractures of ribs, left side, initial encounter for closed fracture; N17.9 Acute kidney failure, unspecified; A04.0 Enteropathogenic Escherichia coli infection; A07.1 Giardiasis [lambliasis]; E87.20 Acidosis, unspecified; J98.11 Atelectasis; R65.20 Severe sepsis without septic shock; R91.8 Other nonspecific abnormal finding of lung field; I48.91 Unspecified atrial fibrillation; E86.0 Dehydration; D69.6 Thrombocytopenia, unspecified; G89.29 Other chronic pain; M54.50 Low back pain, unspecified; I10 Essential (primary) hypertension; W17.89XA Other fall from one level to another, initial encounter; E87.6 Hypokalemia; Y92.89 Other specified places as the place of occurrence of the external cause; Z90.49 Acquired absence of other specified parts of digestive tract; Z98.1 Arthrodesis status; Z85.048 Personal history of other malignant neoplasm of rectum, rectosigmoid junction, and anus; Z87.891 Personal history of nicotine dependence; Z11.52 Encounter for screening for COVID-19
CPT/HCPCS: 0241U; 36415; 70450; 71046; 71250; 80048; 80053; 84132; 84443; 84550; 85025; 87040; 87205; 87507; 93005; 93010; 94640; 94664; 94760; 96365; 96366; 96375; 97161; 99285-25; A9270; J0456; J0696; J1650; J3010; J3480; J7030; J7040; J7050